=== PATIENT | male | born 1980 | race African-American/Black ===

== ENCOUNTER 2017-01-24 07:57 | Emergency (ER) | payer OTHER ==
[~2017-01-24] VITALS: Ht 198.1 cm; Wt 127.0 kg
[~2017-01-24 07:57] MED LIST: FLONASE1 SPRAYS; NKM; OMEPRAZOLE20 M2 ORAL
[2017-01-24] MEDS ORDERED: Lidocaine 2% Visc 15ml soln ORAL ONE (08:45)
[2017-01-24] MEDS ORDERED: Mylanta II UD 30ml ORAL ONE (08:45)
[2017-01-24] MEDS ORDERED: Pantoprazole Inj IVP ONE (09:00)
--- NOTE | 2017-01-24 09:04 | Emergency Room Report ---
History of Present Illness General Chief Complaint: Abdominal Pain Source: Patient Present Illness HPI This patient states that he has a history of intermittent pancreatitis. He states that during that time he has nausea, vomiting diarrhea. He hasn't had an episode in about 7 months. 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 He states that 5 days ago he developed epigastric pain, nausea, vomiting and diarrhea. He states that he is unable to even tolerate chicken broth soup. He also has a burning sensation from his stomach to his throat. He was seen at [facility] yesterday for the same symptoms. He states he was told it was not his pancreas this time. He was given medications but did not pick them up from the pharmacy. These were acid reflux and gastritis medications. He states that he continues to have epigastric pain, nausea and some vomiting. He denies fever or chills. He does not associated the onset of his symptoms with a particular meal. He has no other complaints. Allergies: Coded Allergies: No Known Allergies (Unverified , 12/18/12) Patient History Past Medical History: see triage record, HTN, asthma, other - pancreatitis Past Surgical History: other - Ortho/hip Social History: Reports: alcohol use - Occassional, Denies: drug use, smoking Reviewed Nursing Documentation: PMH: Agreed, PSxH: Agreed Nursing Documentation-PMH Past Medical History: No History, Except For Hx Hypertension: Yes Hx Asthma: Yes Review of Systems All Other Systems: negative except mentioned in HPI Physical Exam Vital Signs Date Time Temp Pulse Resp B/P Pulse Ox O2 Delivery O2 Flow Rate FiO2 01/24/17 08:10 98.1 50 14 156/93 98 Room Air Sp02 EP Interpretation: reviewed, normal General Appearance: no apparent distress, alert, GCS 15, non-toxic Head: normocephalic, atraumatic Eyes: bilateral eye PERRL, bilateral eye normal inspection ENT: hearing grossly normal, normal pharynx, no angioedema, normal voice Neck: full range of motion, supple/symm/no masses Respiratory: chest non-tender, lungs clear, normal breath sounds, speaking full sentences Cardiovascular #1: regular rate, rhythm, no edema Gastrointestinal: normal bowel sounds, soft, non-distended, no guarding, no rebound, tenderness - epigastrium Rectal: deferred Musculoskeletal: back normal, gait/station normal, normal range of motion, non- tender Neurologic: alert, oriented x3, responsive, motor strength/tone normal, sensory intact, speech normal Psychiatric: judgement/insight normal, memory normal, mood/affect normal, no suicidal/homicidal ideation Skin: normal color, no rash, warm/dry, well hydrated Medical Decision Making Diagnostic Impression: Primary Impression: Gastritis Additional Impressions: Esophagitis Hypokalemia ER Course This patient has a clinical presentation consistent with gastritis. The location of the pain and history and physical examination is consistent with this. I considered other concerning differentials, to include appendicitis, cholelithiasis, cholecystitis, pancreatitis, perforated viscus, aortic aneurysm , and pyelonephritis to name a few. However, laboratory workup in combination with medical and surgical history and physical exam makes these unlikely at this time. The patient was given protonix IV, IV Zofran and a GI cocktail orally. He had significant improvement in his symptoms. He was educated that he needs to be on an aggressive acid suppressing GI regimen. He is also found to have hypokalemia. He states that he has had a history of this in the past and has been on potassium previously but not currently. I did replace the patient's potassium here in the emergency department. The patient is also instructed to followup closely with his primary care physician and a [employer] worker. He indicated understanding. I did educate the patient on close return precautions and followup instructions. Labs Test 01/24/17 08:55 White Blood Count 7.5 K/UL (4.8-10.8) Red Blood Count 4.64 M/UL (4.70-6.10) Hemoglobin 14.5 G/DL (14.2-18.0) Hematocrit 44.9 % (42.0-52.0) Mean Corpuscular Volume 97 FL (80-99) Mean Corpuscular Hemoglobin 31.2 PG (27.0-31.0) Mean Corpuscular Hemoglobin Concent 32.2 G/DL (32.0-36.0) Red Cell Distribution Width 12.8 % (11.6-14.8) Platelet Count 211 K/UL (150-450) Mean Platelet Volume 7.5 FL (6.5-10.1) Neutrophils (%) (Auto) 76.7 % (45.0-75.0) Lymphocytes (%) (Auto) 16.3 % (20.0-45.0) Monocytes (%) (Auto) 6.0 % (1.0-10.0) Eosinophils (%) (Auto) 0.0 % (0.0-3.0) Basophils (%) (Auto) 1.0 % (0.0-2.0) Urine Color Yellow Urine Appearance Slightly cloudy Urine pH 5 (4.5-8.0) Urine Specific [place] 1.025 (1.005-1.035) Urine Protein 2+ (NEGATIVE) Urine Glucose (UA) Negative (NEGATIVE) Urine Ketones Negative (NEGATIVE) Urine Occult Blood 2+ (NEGATIVE) Urine Nitrite Negative (NEGATIVE) Urine Bilirubin Negative (NEGATIVE) Urine Urobilinogen Normal MG/DL (0.0-1.0) Urine Leukocyte Esterase Negative (NEGATIVE) Urine RBC 2-4 /HPF (0 - 0) Urine WBC 2-4 /HPF (0 - 0) Urine Squamous Epithelial Cells Few /LPF (NONE/OCC) Urine Bacteria Few /HPF (NONE) Urine Mucus Moderate /LPF (NONE/OCC) Sodium Level 143 mEQ/L (135-145) Potassium Level 2.8 mEQ/L (3.4-4.9) Chloride Level 104 mEQ/L (98-107) Carbon Dioxide Level 25 mEQ/L (20-30) Anion Gap 14 (5-15) Blood Urea Nitrogen 11 mg/dL (7-23) Creatinine 0.8 mg/dL (0.7-1.2) Estimat Glomerular Filtration Rate > 60 mL/min (>60) Glucose Level 105 mg/dL (74-106) Calcium Level 7.4 mg/dL (8.6-10.2) Total Bilirubin 0.3 mg/dL (0.0-1.2) Aspartate Amino Transf (AST/SGOT) 18 U/L (5-40) Alanine Aminotransferase (ALT/SGPT) 22 U/L (3-41) Alkaline Phosphatase 45 U/L (40-129) Troponin I < 0.30 ng/mL (<=0.30) Total Protein 5.9 g/dL (6.6-8.7) Albumin 3.5 g/dL (3.5-5.2) Globulin 2.4 g/dL Albumin/Globulin Ratio 1.4 (1.0-2.7) Lipase 50 U/L (< 60) EKG Diagnostic Results Rate: bradycardiac Rhythm: other ST Segments: no acute changes Other Impression S.bradycardia Rhythm Strip Diag. Results EP Interpretation: yes Rate: 50 Rhythm: no PVC's, no ectopy Other Impression S.bradycardia Last Vital Signs Date Time Temp Pulse Resp B/P Pulse Ox O2 Delivery O2 Flow Rate FiO2 01/24/17 08:10 98.1 50 14 156/93 98 Room Air Status: improved Disposition: HOME, SELF-CARE Condition: Improved Referrals: [facility]ERR[facility] (PCP) Patient Instructions: Gastritis, Adult, Gastroesophageal Reflux Disease, Adult ARETHA KEITA D.O. Jan 24, 2017 09:04
[2017-01-24 09:10] VITALS: BP 140/77
[2017-01-24 09:37] LABS: APPEARANCE,URINE SLIGHTLY CLOUDY; KETONES,URINE NEGATIVE (NEGATIVE); LEUKOCYTE ESTERASE ,URINE NEGATIVE (NEGATIVE); NITRITE,URINE NEGATIVE (NEGATIVE); PH,URINE 5 (4.5-8.0); PROTEIN,URINE 2+ (NEGATIVE); UROBILINOGEN,URINE NORMAL MG/DL (0.0-1.0)
[2017-01-24 09:40] LABS: TROPONIN I < 0.30 ng/mL (<=0.30)
[2017-01-24 09:43] LABS: ALANINE AMINOTRANSFERASE 22 U/L (3-41); ALBUMIN/GLOBULIN RATIO 1.4 (1.0-2.7); ANION GAP 14 (5-15); ASPARTATE AMINO TRANSFERASE 18 U/L (5-40); CALCIUM 7.4 mg/dL (8.6-10.2); CARBON DIOXIDE 25 mEQ/L (20-30); CHLORIDE 104 mEQ/L (98-107); CREATININE 0.8 mg/dL (0.7-1.2); GLOMERULAR FILTRATION RATE > 60 mL/min (>60); HEMOLYSIS 5; LIPASE 50 U/L (< 60); LYMPHOCYTES % (AUTO) 16.3 % (20.0-45.0); MEAN CORPUSCULAR HEMOGLOBIN 31.2 PG (27.0-31.0); MEAN CORPUSCULAR HGB CONC 32.2 G/DL (32.0-36.0); MEAN CORPUSCULAR VOLUME 97 FL (80-99); MEAN PLATELET VOLUME 7.5 FL (6.5-10.1); NEUTROPHILS % (AUTO) 76.7 % (45.0-75.0); PLATELET COUNT 211 K/UL (150-450); POTASSIUM 2.8 mEQ/L (3.4-4.9); RED BLOOD COUNT 4.64 M/UL (4.70-6.10); RED CELL DISTRIBUTION WIDTH 12.8 % (11.6-14.8); SODIUM 143 mEQ/L (135-145); TOTAL PROTEIN 5.9 g/dL (6.6-8.7); WHITE BLOOD COUNT 7.5 K/UL (4.8-10.8)
[2017-01-24 10:03] LABS: BACTERIA,URINE FEW /HPF; MUCUS,URINE MODERATE /LPF (NONE/OCC); SQUAMOUS EPITHELIAL CELL,UR FEW /LPF (NONE/OCC)
[2017-01-24] MEDS ORDERED: Norco 5mg/325mg tab ORAL ONE (11:00)
[2017-01-24 11:27] VITALS: BP 141/78
[2017-01-24] MEDS ORDERED: RANITIDINE HCL150 MG ORAL (12:18)
[2017-01-24] MEDS ORDERED: POTASSIUM CHLO10 ME3 ORAL (12:18)
[2017-01-24] MEDS ORDERED: MAALOX MAXIMUM355 M1 PO (12:18)
[2017-01-24] MEDS ORDERED: PROTONIX40 MG ORAL (12:18)
[2017-01-24] MEDS ORDERED: PHENERGAN25 M1 ORAL (12:18)
[2017-01-24 12:28] VITALS: BP 141/78
--- NOTE | 2017-01-25 15:41 | Cardiology Report ---
APPROVED REPORT EKG Measurement Heart [id number] Sinus bradycardia Otherwise normal ECG
== END 2017-01-24 12:31 | disposition home or self-care (01) ==
LOC: EMR 08:39
DX: K29.70 Gastritis, unspecified, without bleeding (principal); K20.9 Esophagitis, unspecified; E87.6 Hypokalemia; I10 Essential (primary) hypertension; J45.909 Unspecified asthma, uncomplicated; R00.1 Bradycardia, unspecified
CPT/HCPCS: 36415; 80053; 81003; 83690; 84484; 85025; 93005; 96360; 96361; 99284; C9113; J2405; J8499

== ENCOUNTER 2017-05-27 18:19 | Emergency (ER) | payer OTHER ==
[~2017-05-27] VITALS: Ht 198.1 cm; Wt 129.3 kg
[~2017-05-27 18:19] MED LIST changes: +MAALOX MAXIMUM355 M1 PO; +PHENERGAN25 M1 ORAL; +POTASSIUM CHLO10 ME3 ORAL; +PROTONIX40 MG ORAL; +RANITIDINE HCL150 MG ORAL
[2017-05-27] MEDS ORDERED: Famotidine 20 MG/ 2ML VIAL IVP ONE (18:45)
[2017-05-27] MEDS ORDERED: Morphine Sulfate 4mg/ml Inj IVP ONE (18:45)
--- NOTE | 2017-05-27 18:49 | Emergency Room Report ---
History of Present Illness General Chief Complaint: Abdominal Pain Source: Patient Present Illness HPI Patient presents with vomiting and epigastric pain. This for 2 days. Severe, burning, not radiating. He thinks it is pancreatitis. 07/25, constant and worsening. He was seen at [facility] before coming here. They gave him Reglan, Zofran and Tramadol. He states his pain was not controlled and therefore he decided to come here. He denies vomiting blood but vomiting bile. Had some diarrhea which he thinks is brown in color. He's had cold sweats and chills but no fever. He feels weak. Seen before here with gastritis, intractable vomiting and hypokalemia. States taking potassium. Allergies: Coded Allergies: No Known Allergies (Unverified , 12/18/12) Patient History Past Medical History: see triage record Social History: Reports: alcohol use, Denies: drug use, smoking Social History Narrative Disabled Reviewed Nursing Documentation: PMH: Agreed, PSxH: Agreed Nursing Documentation-PMH Past Medical History: No History, Except For Hx Hypertension: Yes Hx Asthma: Yes Review of Systems All Other Systems: negative except mentioned in HPI Physical Exam Vital Signs Date Time Temp Pulse Resp B/P Pulse Ox O2 Delivery O2 Flow Rate FiO2 05/27/17 18:32 97.2 55 18 117/84 98 Room Air Sp02 EP Interpretation: reviewed, normal General Appearance: well appearing, no apparent distress, GCS 15 Head: normocephalic Eyes: bilateral eye PERRL, bilateral eye normal inspection ENT: moist mucus membranes Neck: supple Respiratory: lungs clear, normal breath sounds Cardiovascular #1: regular rate, rhythm Cardiovascular #2: 2+ radial (R) Gastrointestinal: normal inspection, normal bowel sounds, non tender, no mass, non-distended Musculoskeletal: back normal, gait/station normal, normal range of motion Neurologic: alert, oriented x3 Skin: normal inspection, warm/dry Medical Decision Making Diagnostic Impression: Primary Impression: Abdominal pain Qualified Codes: R10.13 - Epigastric pain ER Course The patient's been seen here in the past for gastritis and intractable vomiting. He presents today with epigastric pain and vomiting bile. Differential includes gastritis, pancreatitis, a stretcher and is, peptic ulcer disease in gallbladder disease amongst others. The patient will undergo evaluation with labs urinalysis. He will be treated with IV hydration, Zofran and morphine with some Pepcid. Lab eval unremarkable. Improved and sleeping. Patient stable for outpatient observation and treatment. Laboratory Tests Test 05/27/17 19:07 White Blood Count 6.5 K/UL (4.8-10.8) Red Blood Count 3.99 M/UL (4.70-6.10) L Hemoglobin 13.2 G/DL (14.2-18.0) L Hematocrit 39.0 % (42.0-52.0) L Mean Corpuscular Volume 98 FL (80-99) Mean Corpuscular Hemoglobin 33.1 PG (27.0-31.0) H Mean Corpuscular Hemoglobin Concent 33.8 G/DL (32.0-36.0) Red Cell Distribution Width 11.9 % (11.6-14.8) Platelet Count 187 K/UL (150-450) Mean Platelet Volume 7.0 FL (6.5-10.1) Neutrophils (%) (Auto) 84.5 % (45.0-75.0) H Lymphocytes (%) (Auto) 12.2 % (20.0-45.0) L Monocytes (%) (Auto) 2.7 % (1.0-10.0) Eosinophils (%) (Auto) 0.0 % (0.0-3.0) Basophils (%) (Auto) 0.7 % (0.0-2.0) Prothrombin Time 10.7 SEC (9.30-11.50) Prothrombin Time INR 1.0 (0.9-1.1) PTT 25 SEC (23-33) Sodium Level 141 mEQ/L (135-145) Potassium Level 3.8 mEQ/L (3.4-4.9) Chloride Level 102 mEQ/L (98-107) Carbon Dioxide Level 26 mEQ/L (20-30) Anion Gap 13 (5-15) Blood Urea Nitrogen 12 mg/dL (7-23) Creatinine 1.2 mg/dL (0.7-1.2) Estimate Glomerular Filtration Rate > 60 mL/min (>60) Glucose Level 143 mg/dL (74-106) H Calcium Level 9.8 mg/dL (8.6-10.2) Total Bilirubin 0.5 mg/dL (0.0-1.2) Aspartate Amino Transferase (AST) 26 U/L (5-40) Alanine Aminotransferase (ALT) 25 U/L (3-41) Alkaline Phosphatase 57 U/L (40-129) Total Creatine Kinase 318 U/L (38-174) H Total Protein 7.5 g/dL (6.6-8.7) Albumin 4.6 g/dL (3.5-5.2) Globulin 2.9 g/dL Albumin/Globulin Ratio 1.5 (1.0-2.7) Lipase 26 U/L (< 60) EKG Diagnostic Results Rate: bradycardiac ST Segments: no acute changes Rhythm Strip Diag. Results EP Interpretation: yes Rhythm: no PVC's, no ectopy, other - Bradycardia Last Vital Signs Date Time Temp Pulse Resp B/P Pulse Ox O2 Delivery O2 Flow Rate FiO2 05/27/17 20:19 98.0 72 16 146/72 100 Room Air Status: improved Disposition: HOME, SELF-CARE Condition: Improved Scripts Hydrocodone Bit/Acetaminophen 5-325* (NORCO 5-325*) 1 Each Tablet 1 TAB ORAL Q6H Y for For Pain, #10 TAB 0 Refills Prov: Jensen Padron M.D. 05/27/17 Ondansetron Odt* (ZOFRAN ODT*) 4 Mg Tab.rapdis 4 MG ORAL Q8H Y for Nausea & Vomiting, #6 TAB 0 Refills Prov: Jensen Padron M.D. 05/27/17 Jensen Padron M.D. May 27, 2017 18:49
[2017-05-27 19:31] LABS: BASOPHILS % (AUTO) 0.7 % (0.0-2.0); LYMPHOCYTES % (AUTO) 12.2 % (20.0-45.0); MEAN CORPUSCULAR HEMOGLOBIN 33.1 PG (27.0-31.0); MEAN CORPUSCULAR HGB CONC 33.8 G/DL (32.0-36.0); MEAN CORPUSCULAR VOLUME 98 FL (80-99); MONOCYTES % (AUTO) 2.7 % (1.0-10.0); NEUTROPHILS % (AUTO) 84.5 % (45.0-75.0); PLATELET COUNT 187 K/UL (150-450); RED BLOOD COUNT 3.99 M/UL (4.70-6.10); RED CELL DISTRIBUTION WIDTH 11.9 % (11.6-14.8); WHITE BLOOD COUNT 6.5 K/UL (4.8-10.8)
[2017-05-27 19:40] LABS: PROTHROMBIN TIME 10.7 SEC (9.30-11.50)
[2017-05-27 19:51] LABS: ALANINE AMINOTRANSFERASE 25 U/L (3-41); ALBUMIN/GLOBULIN RATIO 1.5 (1.0-2.7); ANION GAP 13 (5-15); ASPARTATE AMINO TRANSFERASE 26 U/L (5-40); CALCIUM 9.8 mg/dL (8.6-10.2); CARBON DIOXIDE 26 mEQ/L (20-30); CHLORIDE 102 mEQ/L (98-107); CREATININE 1.2 mg/dL (0.7-1.2); GLOMERULAR FILTRATION RATE > 60 mL/min (>60); HEMOLYSIS 27; LIPASE 26 U/L (< 60); POTASSIUM 3.8 mEQ/L (3.4-4.9); SODIUM 141 mEQ/L (135-145); TOTAL PROTEIN 7.5 g/dL (6.6-8.7)
[2017-05-27 20:19] VITALS: BP 146/72
[2017-05-27] MEDS ORDERED: NORCO 5-325 TA1 EACH ORAL (21:28)
[2017-05-27] MEDS ORDERED: ZOFRAN ODT4 MG ORAL (21:28)
[2017-05-27] MEDS ORDERED: Norco 5mg/325mg tab ORAL ONE (21:30)
[2017-05-28 05:40] VITALS: BP 104/64
--- NOTE | 2017-05-28 17:50 | Cardiology Report ---
APPROVED REPORT EKG Measurement Heart [id number] Sinus bradycardia Otherwise normal ECG
== END 2017-05-27 22:00 | disposition home or self-care (01) ==
LOC: EMR 18:50
DX: R10.13 Epigastric pain (principal); R11.10 Vomiting, unspecified; I10 Essential (primary) hypertension; R00.1 Bradycardia, unspecified
CPT/HCPCS: 36415; 80053; 82550; 83690; 85025; 85610; 85730; 93005; 96374; 96375; 99284; J2270; J2405; S0028

== ENCOUNTER 2017-05-31 07:57 | Emergency (ER) | payer OTHER ==
[~2017-05-31] VITALS: Ht 195.6 cm; Wt 129.3 kg
[~2017-05-31 07:57] MED LIST changes: +NORCO 5-325 TA1 EACH ORAL; +ZOFRAN ODT4 MG ORAL
[2017-05-31 08:20] VITALS: BP 173/106
[2017-05-31] MEDS ORDERED: Famotidine 20 MG/ 2ML VIAL IVP ONE (08:30)
--- NOTE | 2017-05-31 08:32 | Emergency Room Report ---
History of Present Illness General Chief Complaint: Nausea Source: Patient Present Illness HPI 37-year-old male no significant past medical history chronic marijuana user presenting with nausea vomiting and epigastric abdominal pain. Patient states that on Monday his symptoms started he had about 5 episodes of nonbilious nonbloody vomiting. Patient went to the emergency room and symptoms improved with morphine and Zofran. Patient states that the nausea and vomiting came first the followed by the burning epigastric pain. Patient states that nausea vomiting still continued about 3-4 episodes a day now with mild streaks of blood. States that she is passing gas and stool today he had a normal bowel movement denies it being bloody or black. Patient denies having any abdominal surgeries and no endoscopies in the past. Patient denies any chronic alcohol use. Allergies: Coded Allergies: No Known Allergies (Unverified , 12/18/12) Patient History Past Medical History: none Past Surgical History: none Pertinent Family History: none Social History: Reports: drug use, smoking Nursing Documentation-[facility] Past Medical History: No History, Except For Hx Hypertension: Yes Hx Asthma: Yes Review of Systems Gastrointestinal: Reports: abdominal pain, nausea, vomiting Physical Exam Vital Signs Date Time Temp Pulse Resp B/P Pulse Ox O2 Delivery O2 Flow Rate FiO2 05/31/17 08:02 97.7 53 19 174/97 100 Room Air General Appearance: normal inspection, well appearing, no apparent distress, alert, GCS 15, non-toxic Head: normocephalic, atraumatic Eyes: bilateral eye EOMI, bilateral eye PERRL, bilateral eye normal inspection ENT: normal ENT inspection, normal pharynx, normal voice, moist mucus membranes Neck: normal inspection, full range of motion, supple, no bony tend Respiratory: normal inspection, lungs clear, normal breath sounds, no respiratory distress, no retraction, no wheezing, speaking full sentences, chest symmetrical Cardiovascular #1: normal inspection, regular rate, rhythm, no edema, normal capillary refill Gastrointestinal: normal inspection, soft, non-distended, no guarding, other - mild epigastric tenderness no guarding Genitourinary: no CVA tenderness Musculoskeletal: normal inspection, back normal, normal range of motion, non- tender Neurologic: normal inspection, alert, oriented x3, responsive, motor strength/ tone normal, sensory intact, normal gait, speech normal Medical Decision Making Diagnostic Impression: Primary Impression: Nausea and vomiting in adult patient ER Course 37 yo M hx with n/v epigastric pain DDX: vomiting syndrome related to marijuana use gastritis GB pathology Plan: labs, zofran/pepcid/morphine ER course: patient given pepcid, zofran, reglan, morphine labs: no leukocytosis, normal LFTs CXR: no free air US performd - no stones in gallbladder patient had few episodes of vomiting in ED however improved nursing staff noted him to induce his own vomiting patient appeared very well repeat abd exam soft nt Disposition: pt dced to home. informed to follow up with pmd within 5 days. strict return prec discussed with pt. alsot old to stop using marijuana as could cause the vomiting. pt verbalized understanding Last Vital Signs Date Time Temp Pulse Resp B/P Pulse Ox O2 Delivery O2 Flow Rate FiO2 05/31/17 08:02 97.7 53 19 174/97 100 Room Air Cheryl Dial M.D. May 31, 2017 08:31
[2017-05-31] MEDS ORDERED: Morphine Sulfate 4mg/ml Inj ONE (08:35)
[2017-05-31 08:41] LABS: BASOPHILS % (AUTO) 1.4 % (0.0-2.0); EOSINOPHILS % (AUTO) 0.5 % (0.0-3.0); LYMPHOCYTES % (AUTO) 27.8 % (20.0-45.0); MEAN CORPUSCULAR HEMOGLOBIN 32.7 PG (27.0-31.0); MEAN CORPUSCULAR HGB CONC 33.2 G/DL (32.0-36.0); MEAN CORPUSCULAR VOLUME 99 FL (80-99); MEAN PLATELET VOLUME 6.8 FL (6.5-10.1); NEUTROPHILS % (AUTO) 65.4 % (45.0-75.0); PLATELET COUNT 224 K/UL (150-450); RED BLOOD COUNT 4.22 M/UL (4.70-6.10); RED CELL DISTRIBUTION WIDTH 11.5 % (11.6-14.8); WHITE BLOOD COUNT 5.5 K/UL (4.8-10.8)
[2017-05-31 08:49] LABS: ALANINE AMINOTRANSFERASE 25 U/L (3-41); ALBUMIN/GLOBULIN RATIO 1.5 (1.0-2.7); ANION GAP 12 (5-15); ASPARTATE AMINO TRANSFERASE 29 U/L (5-40); CALCIUM 11.3 mg/dL (8.6-10.2); CARBON DIOXIDE 30 mEQ/L (20-30); CHLORIDE 98 mEQ/L (98-107); CREATININE 1.2 mg/dL (0.7-1.2); GLOMERULAR FILTRATION RATE > 60 mL/min (>60); HEMOLYSIS 12; LIPASE 54 U/L (< 60); POTASSIUM 3.7 mEQ/L (3.4-4.9); SODIUM 140 mEQ/L (135-145); TOTAL PROTEIN 7.2 g/dL (6.6-8.7)
[2017-05-31] MEDS ORDERED: Morphine Sulfate 4mg/ml Inj IVP ONE ×2 (09:00→09:45)
[2017-05-31 09:16] LABS: APPEARANCE,URINE CLEAR; KETONES,URINE 1+ (NEGATIVE); LEUKOCYTE ESTERASE ,URINE 1+ (NEGATIVE); NITRITE,URINE NEGATIVE (NEGATIVE); PH,URINE 6 (4.5-8.0); PROTEIN,URINE NEGATIVE (NEGATIVE); UROBILINOGEN,URINE NORMAL MG/DL (0.0-1.0)
[2017-05-31 09:32] LABS: BACTERIA,URINE FEW /HPF; MUCUS,URINE FEW /LPF (NONE/OCC); SQUAMOUS EPITHELIAL CELL,UR OCCASIONAL /LPF (NONE/OCC)
[2017-05-31] MEDS ORDERED: Metoclopramide 10mg/2ml Inj IVP ONE (09:45)
[2017-05-31 11:53] VITALS: BP 157/88
--- NOTE | 2017-05-31 12:14 | Diagnostic Imaging Report ---
Indication: Chest pain Technique: One view of the chest Comparison: 10/03/2009 Findings: Lung and pleural space are clear. Heart size is normal. There is no significant interim change Impression: No acute process
[2017-05-31] MEDS ORDERED: Mylanta II UD 30ml ORAL ONE (12:15)
[2017-05-31] MEDS ORDERED: Dicyclomine HCl 10mg/5ml oral soln ORAL ONE (12:15)
[2017-05-31] MEDS ORDERED: Lidocaine 2% Visc 15ml soln ORAL ONE (12:15)
[2017-05-31 12:40] VITALS: BP 157/88
--- NOTE | 2017-05-31 14:19 | Diagnostic Imaging Report ---
Indication: Epigastric pain, vomiting, nausea Technique: Sparks-scale and duplex images of the upper abdomen were obtained Comparison: Reference made to abdomen pelvis CT 06/16/2016 Findings: Gallbladder is unremarkable, without stones, wall thickening, nor pericholecystic fluid. Sonographic Srivastava's sign is negative. Common bile duct measures 5 mm in diameter. No intrahepatic biliary ductal dilatation. Liver demonstrates normal echogenicity, no focal abnormality. Portal vein and hepatic veins are patent. Pancreas demonstrates questionable echogenic foci, could represent small calcifications. Spleen is unremarkable. Left kidney measures 12 cm in length. Right kidney measures full 0.3 cm length. Both kidneys demonstrate normal echogenicity. There is no hydronephrosis. There are bilateral renal cysts . Non-aneurysmal abdominal aorta . Impression: Echogenic foci in the pancreas, could represent small calcifications, but are more likely artifactual, given negative finding on recent CT Negative for gallstones or dilated ducts Bilateral renal cysts incidentally noted
== END 2017-05-31 12:46 | disposition home or self-care (01) ==
LOC: EMR 08:56
DX: R11.2 Nausea with vomiting, unspecified (principal); I10 Essential (primary) hypertension; F17.200 Nicotine dependence, unspecified, uncomplicated
CPT/HCPCS: 36415; 71010; 76700; 80053; 81003; 83690; 85025; 96360; 96375; 99284; J2270; J2405; J2765; S0028

== ENCOUNTER 2017-07-24 02:55 | Emergency (ER) | payer OTHER ==
[~2017-07-24] VITALS: Ht 198.1 cm; Wt 127.0 kg
[2017-07-24 03:20] VITALS: BP 176/103
--- NOTE | 2017-07-24 03:26 | Emergency Room Report ---
History of Present Illness General Chief Complaint: Abdominal Pain Source: Patient Present Illness HPI 37-year-old male, marijuana user, presenting with abdominal pain nausea vomiting since 10:30 PM last night. More than 6 episodes nonbilious nonbloody vomiting. Associated with burning epigastric pain. Patient states that this has happened multiple times in the past. Upon chart review, patient has been here multiple times as well for same thing. Patient states that Zofran usually helps. No endoscopies and colonoscopies. No black or bloody stools Allergies: Coded Allergies: No Known Allergies (Unverified , 12/18/12) Patient History Past Medical History: see triage record Past Surgical History: none Pertinent Family History: none Reviewed Nursing Documentation: PMH: Agreed, PSxH: Agreed Nursing Documentation-PMH Hx Hypertension: Yes Hx Asthma: Yes Review of Systems All Other Systems: negative except mentioned in HPI Physical Exam Vital Signs Date Time Temp Pulse Resp B/P (MAP) Pulse Ox O2 Delivery O2 Flow Rate FiO2 07/24/17 03:11 97.5 71 18 176/103 98 Room Air Sp02 EP Interpretation: reviewed, normal General Appearance: alert, GCS 15, non-toxic, other - Young male, appears to be in distress Head: normocephalic, atraumatic Eyes: bilateral eye normal inspection, bilateral eye PERRL, bilateral eye EOMI ENT: normal ENT inspection, normal pharynx, normal voice, moist mucus membranes Neck: normal inspection, full range of motion, supple Respiratory: normal inspection, lungs clear, normal breath sounds, no respiratory distress, no retraction, no wheezing, speaking full sentences, chest symmetrical Cardiovascular #1: normal inspection, regular rate, rhythm, no edema, normal capillary refill Cardiovascular #2: 2+ radial (R), 2+ radial (L) Gastrointestinal: soft, non-distended, no guarding, other - Mild epigastric tenderness, no guarding no rebound, nontender all other quadrant Genitourinary: no CVA tenderness Musculoskeletal: normal inspection, back normal, normal range of motion, non- tender Neurologic: normal inspection, alert, oriented x3, responsive, motor strength/ tone normal, sensory intact, normal gait, speech normal Psychiatric: normal inspection, judgement/insight normal, memory normal Skin: normal inspection, normal color, no rash, warm/dry, well hydrated, normal turgor Medical Decision Making Diagnostic Impression: Primary Impression: Nausea and vomiting in adult patient ER Course 37-year-old male with abdominal pain Differential Diagnosis: Gastritis, gastroenteritis, cholecystitis, appendicitis, diverticulitis, UTI/ pyelo At this time abdomen is soft nontender, not likely to have acute intra- abdominal surgical pathology, will hold CT for now. Patient has had a gallbladder sonogram in the past, which has been negative. Patient has had similar episodes such as this, likely secondary to marijuana use , cyclic vomiting Plan: Basic labs, ua, ekg Pepcid, maalox, pain control, IVF ER course: Patient has remained stable during ED stay. Pain improved. Repeat abdominal exam is nontender. required zofran x 2 and reglan ambulatory in ED wants to leave will DC Disposition: Patient is to be discharged to home. Patient is instructed to follow up with their primary care doctor within 5 days. Patient is instructed to follow up with gastroenterology within one week Strict return precautions discussed with patient such as fever, chills, worsening/severe abdominal pain, nausea, vomiting, black or bloody stools, which may indicate severe illness. Please note that this Emergency Department Report was dictated using [employer] instructor technology software, occasionally this can lead to erroneous entry secondary to interpretation by the dictation equipment Laboratory Tests Test 07/24/17 03:30 White Blood Count 6.4 K/UL (4.8-10.8) Red Blood Count 3.92 M/UL (4.70-6.10) L Hemoglobin 13.3 G/DL (14.2-18.0) L Hematocrit 38.2 % (42.0-52.0) L Mean Corpuscular Volume 98 FL (80-99) Mean Corpuscular Hemoglobin 34.0 PG (27.0-31.0) H Mean Corpuscular Hemoglobin Concent 34.9 G/DL (32.0-36.0) Red Cell Distribution Width 11.6 % (11.6-14.8) Platelet Count 196 K/UL (150-450) Mean Platelet Volume 7.4 FL (6.5-10.1) Neutrophils (%) (Auto) 74.6 % (45.0-75.0) Lymphocytes (%) (Auto) 20.0 % (20.0-45.0) Monocytes (%) (Auto) 4.5 % (1.0-10.0) Eosinophils (%) (Auto) 0.1 % (0.0-3.0) Basophils (%) (Auto) 0.8 % (0.0-2.0) Sodium Level 138 MMOL/L (136-145) Potassium Level 3.2 MMOL/L (3.5-5.1) L Chloride Level 101 MMOL/L (98-107) Carbon Dioxide Level 28 MMOL/L (21-32) Anion Gap 9 (5-15) Blood Urea Nitrogen 15 mg/dL (7-18) Creatinine 1.3 MG/DL (0.55-1.00) H Estimate Glomerular Filtration Rate > 60 mL/min (>60) Glucose Level 170 MG/DL (74-106) H Calcium Level 9.0 MG/DL (8.5-10.1) Total Bilirubin 0.5 MG/DL (0.2-1.0) Aspartate Amino Transferase (AST) 23 U/L (15-37) Alanine Aminotransferase (ALT) 32 U/L (12-78) Alkaline Phosphatase 57 U/L (46-116) Total Protein 7.6 G/DL (6.4-8.2) Albumin 3.9 G/DL (3.4-5.0) Globulin 3.7 g/dL Albumin/Globulin Ratio 1.0 (1.0-2.7) Lipase 142 U/L (73-393) Last Vital Signs Date Time Temp Pulse Resp B/P (MAP) Pulse Ox O2 Delivery O2 Flow Rate FiO2 07/24/17 03:11 97.5 71 18 176/103 98 Room Air Disposition: HOME, SELF-CARE Condition: Improved Cheryl Dial M.D. Jul 24, 2017 03:25
[2017-07-24 04:00] LABS: BASOPHILS % (AUTO) 0.8 % (0.0-2.0); EOSINOPHILS % (AUTO) 0.1 % (0.0-3.0); MEAN CORPUSCULAR HGB CONC 34.9 G/DL (32.0-36.0); MEAN CORPUSCULAR VOLUME 98 FL (80-99); MEAN PLATELET VOLUME 7.4 FL (6.5-10.1); MONOCYTES % (AUTO) 4.5 % (1.0-10.0); NEUTROPHILS % (AUTO) 74.6 % (45.0-75.0); PLATELET COUNT 196 K/UL (150-450); RED BLOOD COUNT 3.92 M/UL (4.70-6.10); RED CELL DISTRIBUTION WIDTH 11.6 % (11.6-14.8); WHITE BLOOD COUNT 6.4 K/UL (4.8-10.8)
[2017-07-24 04:17] LABS: ALANINE AMINOTRANSFERASE 32 U/L (12-78); ANION GAP 9 (5-15); ASPARTATE AMINO TRANSFERASE 23 U/L (15-37); CARBON DIOXIDE 28 MMOL/L (21-32); CHLORIDE 101 MMOL/L (98-107); CREATININE 1.3 MG/DL (0.55-1.00); GLOMERULAR FILTRATION RATE > 60 mL/min (>60); LIPASE 142 U/L (73-393); POTASSIUM 3.2 MMOL/L (3.5-5.1); SODIUM 138 MMOL/L (136-145); TOTAL PROTEIN 7.6 G/DL (6.4-8.2)
[2017-07-24] MEDS ORDERED: Dicyclomine HCl 10mg/5ml oral soln ORAL ONE (05:30)
[2017-07-24] MEDS ORDERED: Metoclopramide 10mg/2ml Inj IVP ONE (05:30)
[2017-07-24] MEDS ORDERED: Lidocaine 2% Visc 15ml soln ORAL ONE (05:30)
[2017-07-24] MEDS ORDERED: Mylanta II UD 30ml ORAL ONE (05:30)
[2017-07-24 05:45] VITALS: BP 161/89
[2017-07-24 05:50] VITALS: BP 161/89
== END 2017-07-24 05:50 | disposition home or self-care (01) ==
LOC: EMR 03:43
DX: R11.2 Nausea with vomiting, unspecified (principal); R10.9 Unspecified abdominal pain; I10 Essential (primary) hypertension; J45.909 Unspecified asthma, uncomplicated
CPT/HCPCS: 36415; 80053; 83690; 85025; 96361; 96374; 96375; 96376; 99284; J2405; J2765

== ENCOUNTER 2017-11-11 11:18 | Emergency (ER) | payer OTHER ==
[~2017-11-11] VITALS: Ht 198.1 cm; Wt 131.5 kg
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
[2017-11-11] MEDS ORDERED: Lidocaine 1% MPF 10mg/ml 5ml INJ ONE (12:00)
[2017-11-11] MEDS ORDERED: Bactrim-DS 1 tab ORAL ONE (12:00)
[2017-11-11] MEDS ORDERED: BACTRIM DS TAB1 EAC1 ORAL (12:33)
[2017-11-11] MEDS ORDERED: IBUPROFEN600 MG ORAL (12:33)
[2017-11-11] MEDS ORDERED: KEFLEX500 MG ORAL (12:33)
[2017-11-11 12:45] VITALS: BP 122/88
== END 2017-11-11 12:47 | disposition home or self-care (01) ==
LOC: EMR 11:32
DX: R21 Rash and other nonspecific skin eruption (principal); R23.4 Changes in skin texture; I10 Essential (primary) hypertension; J45.909 Unspecified asthma, uncomplicated
CPT/HCPCS: 96372; 99283; J0696

== ENCOUNTER 2018-02-11 00:18 | Emergency (ER) | payer OTHER ==
[~2018-02-11] VITALS: Ht 198.1 cm; Wt 131.5 kg
[~2018-02-11 00:18] MED LIST changes: +BACTRIM DS TAB1 EAC1 ORAL; +IBUPROFEN600 MG ORAL; +KEFLEX500 MG ORAL
[2018-02-11 00:30] VITALS: BP 150/94
[2018-02-11] MEDS ORDERED: Haloperidol Lactate 5 MG in D5W 55 ML IVPB ONE (00:45)
[2018-02-11] MEDS ORDERED: Promethazine HCl 25 MG in NS 55 ML IVPB ONE (00:45)
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
[2018-02-11 01:37] LABS: APPEARANCE,URINE CLOUDY; BILIRUBIN, URINE NEGATIVE (NEGATIVE); COLOR,URINE PALE YELLOW; GLUCOSE, URINE (UA) NEGATIVE (NEGATIVE); KETONES,URINE 1+ (NEGATIVE); LEUKOCYTE ESTERASE ,URINE NEGATIVE (NEGATIVE); NITRITE,URINE NEGATIVE (NEGATIVE); PH,URINE 8 (4.5-8.0); PROTEIN,URINE NEGATIVE (NEGATIVE); UROBILINOGEN,URINE NORMAL MG/DL (0.0-1.0)
[2018-02-11 01:44] LABS: BASOPHILS % (AUTO) 0.7 % (0.0-2.0); HEMATOCRIT 40.2 % (42.0-52.0); HEMOGLOBIN 14.4 G/DL (14.2-18.0); LYMPHOCYTES % (AUTO) 14.7 % (20.0-45.0); MEAN CORPUSCULAR VOLUME 93 FL (80-99); MONOCYTES % (AUTO) 2.8 % (1.0-10.0); NEUTROPHILS % (AUTO) 81.8 % (45.0-75.0); PLATELET COUNT 200 K/UL (150-450); RED BLOOD COUNT 4.31 M/UL (4.70-6.10); RED CELL DISTRIBUTION WIDTH 12.7 % (11.6-14.8); WHITE BLOOD COUNT 6.6 K/UL (4.8-10.8)
[2018-02-11 01:50] LABS: ANION GAP 8 mmol/L (5-15); BLOOD UREA NITROGEN 14 mg/dL (7-18); CALCIUM 9.4 MG/DL (8.5-10.1); CARBON DIOXIDE 29 MMOL/L (21-32); CHLORIDE 103 MMOL/L (98-107); CREATININE 1.3 MG/DL (0.55-1.30); POTASSIUM 3.6 MMOL/L (3.5-5.1); SODIUM 140 MMOL/L (136-145)
[2018-02-11 01:59] LABS: ALANINE AMINOTRANSFERASE 34 U/L (12-78); ALBUMIN 4.3 G/DL (3.4-5.0); ALKALINE PHOSPHATASE 81 U/L (46-116); ASPARTATE AMINO TRANSFERASE 24 U/L (15-37); BILIRUBIN,TOTAL 0.5 MG/DL (0.2-1.0)
[2018-02-11] MEDS ORDERED: PHENERGAN25 M1 ORAL (02:19)
[2018-02-11 03:00] VITALS: BP 132/74
[2018-02-11 03:15] VITALS: BP 132/74
== END 2018-02-11 03:15 | disposition home or self-care (01) ==
LOC: EMR 01:51
DX: R10.9 Unspecified abdominal pain (principal); G43.A0 Cyclical vomiting, in migraine, not intractable; I10 Essential (primary) hypertension; J45.909 Unspecified asthma, uncomplicated; Z85.09 Personal history of malignant neoplasm of other digestive organs; F14.10 Cocaine abuse, uncomplicated; F12.10 Cannabis abuse, uncomplicated
CPT/HCPCS: 36415; 80053; 80307; 81003; 83690; 85025; 96374; 96375; 99283; J0780; J1630; J2550

== ENCOUNTER 2018-04-04 19:04 | Emergency (ER) | payer OTHER ==
[~2018-04-04] VITALS: Ht 198.1 cm; Wt 127.0 kg
[2018-04-04] MEDS ORDERED: BACTRIM DS TAB1 EAC1 ORAL (20:23)
[2018-04-04] MEDS ORDERED: CEPHALEXIN500 MG ORAL (20:23)
[2018-04-04] MEDS ORDERED: TRAMADOL HCL50 MG ORAL (20:23)
[2018-04-04 20:25] VITALS: BP 126/72
--- NOTE | 2018-04-04 22:25 | Emergency Room Report ---
History of Present Illness General Chief Complaint: Pain Source: Patient Present Illness HPI 37-year-old male presents ED complaining of right knee pain. Has has pain on and off for the last several years. Notes swelling to the right knee. States he has arthritis in his right knee. Denies any recent injury. Pain is throbbing, 7 out of 10, nonradiating. Also has a wound to his right lower extremity. Has been there for several months. Started out as a "staph infection" but is not resolving. Denies any pain. Denies any fevers or chills. Denies any discharge. No other aggravating relieving factors. Denies any other associated symptoms Allergies: Coded Allergies: No Known Allergies (Unverified , 04/04/18) Patient History Past Medical History: other - pancreatitis Past Surgical History: none Pertinent Family History: none Social History: Denies: smoking, alcohol use, drug use Immunizations: UTD Reviewed Nursing Documentation: PMH: Agreed; PSxH: Agreed Nursing Documentation-PMH Past Medical History: No Stated History Hx Cardiac Problems: No - bilateral hip fracture Hx Hypertension: Yes Hx Pacemaker: No Hx Asthma: Yes Hx COPD: No Hx Diabetes: No Hx Cancer: No Hx Gastrointestinal Problems: Yes - Pancreatitis Hx Dialysis: No Hx Neurological Problems: No Hx Cerebrovascular Accident: No Hx Seizures: No Review of Systems All Other Systems: negative except mentioned in HPI Physical Exam Vital Signs Date Time Temp Pulse Resp B/P (MAP) Pulse Ox O2 Delivery O2 Flow Rate FiO2 04/04/18 19:19 98.2 75 18 126/72 99 Room Air 98.2 Sp02 EP Interpretation: reviewed, normal General Appearance: no apparent distress, alert, GCS 15, non-toxic Head: normocephalic Eyes: bilateral eye normal inspection, bilateral eye PERRL ENT: normal ENT inspection Neck: normal inspection Respiratory: normal inspection Cardiovascular #1: normal inspection Gastrointestinal: normal inspection Rectal: deferred Genitourinary: no CVA tenderness Musculoskeletal: swelling - R knee Neurologic: alert, oriented x3, responsive, motor strength/tone normal, sensory intact, speech normal Psychiatric: normal inspection Skin: other - 2x2cm chronic ulcer to RLE. surrounding induration, no erythema. no discharge Lymphatic: normal inspection Medical Decision Making Diagnostic Impression: Primary Impression: Knee pain Qualified Codes: M25.561 - Pain in right knee; G89.29 - Other chronic pain Additional Impression: Ulcer of lower extremity Qualified Codes: L97.919 - Non-pressure chronic ulcer of unspecified part of right lower leg with unspecified severity ER Course Hospital Course 37-year-old M presents to ED complaining of R knee pain, ulcer to RLE Differential diagnoses include: Fracture, dislocation, sprain, contusion Clinical course Patient placed on stretcher. After initial history and physical, I ordered Xrays R knee Xrays prelim read shows no acute fracture/dislocation. significant DJD. discussed findigns with patient. We will start patient on antibiotics for the ulcer to his right lower extremity. It does appear chronic however. We will provide surgical referral for wound care versus debridement Diagnosis - knee pain, ulcer Stable and discharged to home with prescription for Tramadol, Keflex, Bactrim. apply ice, keep elevated. weight bear as tolerated. Followup with surgery. Return to ED if symptoms recur or worsen Other X-Ray Diagnostic Results Other X-Ray Diagnostic Results : X-Ray ordered: R knee # of Views/Limited Vs Complete: 3 View Indication: Pain EP Interpretation: Yes Interpretation: no dislocation, no fractures, other - significant DJD Impression: Other - DJD Electronically Signed by: Electronically signed by Tab Chand MD Last Vital Signs Date Time Temp Pulse Resp B/P (MAP) Pulse Ox O2 Delivery O2 Flow Rate FiO2 04/04/18 20:25 98.2 18 126/72 99 Room Air 98.2 04/04/18 19:19 75 Status: improved Disposition: HOME, SELF-CARE Condition: Stable Scripts Trimethoprim/Sulfamethoxazole 160/800* (BACTRIM DS TABLET*) 1 Each Tablet 1 TAB ORAL Q12H, #14 TAB 0 Refills Prov: Tab Chand MD 04/04/18 Cephalexin* (KEFLEX*) 500 Mg Capsule 500 MG ORAL EVERY 6 HOURS, #28 CAP Prov: Tab Chand MD 04/04/18 Tramadol Hcl* (ULTRAM*) 50 Mg Tablet 50 MG ORAL Q6H PRN for For Pain, #30 TAB 0 Refills Prov: Tab Chand MD 04/04/18 Referrals: Urban Rosa Patient Instructions: Cellulitis, [id number] Tab Chand MD Apr 04, 2018 22:25
--- NOTE | 2018-04-05 10:01 | Diagnostic Imaging Report ---
Indication: Knee pain Technique: 3 views of the ] knee Comparison: None Findings: There is probably a small suprapatellar effusion. There is degenerative narrowing of the medial joint compartment and medial osteophytes. There is also minimal patellofemoral degeneration. No acute fractures. No dislocations Impression: No acute process
== END 2018-04-04 20:25 | disposition home or self-care (01) ==
LOC: EMR 19:49
DX: M25.561 Pain in right knee (principal); L97.819 Non-pressure chronic ulcer of other part of right lower leg with unspecified severity; I10 Essential (primary) hypertension; J45.909 Unspecified asthma, uncomplicated
CPT/HCPCS: 99284

== ENCOUNTER 2018-07-01 12:12 | Emergency (ER) | payer OTHER ==
[~2018-07-01] VITALS: Ht 198.1 cm; Wt 136.1 kg
[~2018-07-01 12:12] MED LIST changes: +CEPHALEXIN500 MG ORAL; +TRAMADOL HCL50 MG ORAL
[2018-07-01 12:23] VITALS: BP 119/63
--- NOTE | 2018-07-01 12:23 | Emergency Room Report ---
History of Present Illness General Chief Complaint: Abdominal Pain Source: Patient Present Illness HPI Patient presents with complaints of epigastric pain radiation to the mid esophageal region complaints of several episodes of vomiting he also did see a tinge of blood Denies any lower abdominal pain denies any fevers or chills Denies any chest pain or shortness of breath Patient had a lesion on his right back area Which mom describes as likely an insect bite He reports that that has proved significantly Denies any other rash denies any recent travel or trauma Allergies: Coded Allergies: No Known Allergies (Unverified , 04/04/18) Patient History Past Medical History: see triage record Pertinent Family History: none Reviewed Nursing Documentation: PMH: Agreed; PSxH: Agreed Nursing Documentation-PMH Past Medical History: No History, Except For Hx Cardiac Problems: No - bilateral hip fracture Hx Hypertension: Yes Hx Pacemaker: No Hx Asthma: Yes Hx COPD: No Hx Diabetes: No Hx Cancer: No Hx Gastrointestinal Problems: Yes - Pancreatitis Hx Dialysis: No Hx Neurological Problems: No Hx Cerebrovascular Accident: No Hx Seizures: No Review of Systems All Other Systems: negative except mentioned in HPI Physical Exam Vital Signs Date Time Temp Pulse Resp B/P (MAP) Pulse Ox O2 Delivery O2 Flow Rate FiO2 07/01/18 12:08 98.0 62 16 137/94 98 Room Air 98.1 Sp02 EP Interpretation: reviewed, normal General Appearance: mild distress - In acute pain Head: normocephalic, atraumatic Eyes: bilateral eye PERRL, bilateral eye EOMI ENT: hearing grossly normal, normal pharynx, TMs + canals normal, uvula midline Neck: full range of motion, supple, no meningismus, no bony tend Respiratory: lungs clear, normal breath sounds, no rhonchi, no respiratory distress, no retraction, no accessory muscle use Cardiovascular #1: normal peripheral pulses, regular rate, rhythm, no edema, no gallop, no JVD, no murmur Gastrointestinal: normal bowel sounds, non tender - However subjectively points to the epigastric area, soft, no mass, no organomegaly, non-distended, no guarding, no hernia, no pulsatile mass, no rebound Genitourinary: no CVA tenderness Musculoskeletal: normal inspection Neurologic: oriented x3, responsive, project management it specialist III-XII nml as tested, motor strength/ tone normal, sensory intact Psychiatric: mood/affect normal Skin: normal color, no rash, warm/dry, palpation normal Lymphatic: normal inspection, no adenopathy Medical Decision Making Diagnostic Impression: Primary Impression: Abdominal pain Additional Impression: Cocaine abuse ER Course With the history exam and presentation, multiple differentials considered, including but not limited to appendicitis, gastritis, cholecystitis, diverticulitis Patient's blood work is normal urine drug screen does reveal cocaine in the system again Patient has done significantly better throughout his stay Repeat abdominal exam is soft and patient stable for close outpatient follow-up Labs Test 07/01/18 12:35 07/01/18 13:35 White Blood Count 4.9 K/UL (4.8-10.8) Red Blood Count 4.24 M/UL (4.70-6.10) Hemoglobin 13.3 G/DL (14.2-18.0) Hematocrit 39.4 % (42.0-52.0) Mean Corpuscular Volume 93 FL (80-99) Mean Corpuscular Hemoglobin 31.3 PG (27.0-31.0) Mean Corpuscular Hemoglobin Concent 33.7 G/DL (32.0-36.0) Red Cell Distribution Width 11.5 % (11.6-14.8) Platelet Count 244 K/UL (150-450) Mean Platelet Volume 7.1 FL (6.5-10.1) Neutrophils (%) (Auto) 66.4 % (45.0-75.0) Lymphocytes (%) (Auto) 25.3 % (20.0-45.0) Monocytes (%) (Auto) 6.0 % (1.0-10.0) Eosinophils (%) (Auto) 0.9 % (0.0-3.0) Basophils (%) (Auto) 1.4 % (0.0-2.0) Sodium Level 141 MMOL/L (136-145) Potassium Level 3.8 MMOL/L (3.5-5.1) Chloride Level 105 MMOL/L (98-107) Carbon Dioxide Level 24 MMOL/L (21-32) Anion Gap 12 mmol/L (5-15) Blood Urea Nitrogen 16 mg/dL (7-18) Creatinine 1.3 MG/DL (0.55-1.30) Estimat Glomerular Filtration Rate > 60 mL/min (>60) Glucose Level 146 MG/DL (74-106) Calcium Level 10.4 MG/DL (8.5-10.1) Total Bilirubin 0.6 MG/DL (0.2-1.0) Aspartate Amino Transf (AST/SGOT) 28 U/L (15-37) Alanine Aminotransferase (ALT/SGPT) 43 U/L (12-78) Alkaline Phosphatase 89 U/L (46-116) Total Protein 8.4 G/DL (6.4-8.2) Albumin 4.2 G/DL (3.4-5.0) Globulin 4.2 g/dL Albumin/Globulin Ratio 1.0 (1.0-2.7) Lipase 246 U/L (73-393) Serum Alcohol < 3 mg/dL Urine Opiates Screen Negative (NEGATIVE) Urine Barbiturates Screen Negative (NEGATIVE) Phencyclidine (PCP) Screen Negative (NEGATIVE) Urine Amphetamines Screen Negative (NEGATIVE) Urine Benzodiazepines Screen Negative (NEGATIVE) Urine Cocaine Screen Positive (NEGATIVE) Urine Marijuana (THC) Screen Positive (NEGATIVE) Last Vital Signs Date Time Temp Pulse Resp B/P (MAP) Pulse Ox O2 Delivery O2 Flow Rate FiO2 07/01/18 12:08 98.0 62 16 137/94 98 Room Air 98.1 Status: improved Disposition: HOME, SELF-CARE Condition: Improved Scripts Hydrocodone Bit/Acetaminophen 5-325* (NORCO 5-325*) 1 Each Tablet 1 TAB ORAL Q6H PRN for For Pain, #10 TAB 0 Refills Prov: Andrew Alfonso DO 07/01/18 Famotidine (PEPCID AC) 20 Mg Tablet 20 MG PO DAILY for 7 Days, TAB Prov: Andrew Alfonso DO 07/01/18 Additional Instructions: Patient is provided with the discharge instructions notified to follow up with primary doctor in the next 2-3 days otherwise return to the er with any worsening symptoms. Please note that this report is being documented using [employer] technology. This can lead to erroneous entry secondary to incorrect interpretation by the dictating instrument. Andrew Alfonso DO Jul 01, 2018 12:23
[2018-07-01] MEDS ORDERED: Morphine Sulfate 4mg/ml Inj (IV USE ONLY) IVP ONE (12:30)
[2018-07-01 13:10] LABS: BASOPHILS % (AUTO) 1.4 % (0.0-2.0); EOSINOPHILS % (AUTO) 0.9 % (0.0-3.0); HEMATOCRIT 39.4 % (42.0-52.0); HEMOGLOBIN 13.3 G/DL (14.2-18.0); LYMPHOCYTES % (AUTO) 25.3 % (20.0-45.0); MEAN CORPUSCULAR VOLUME 93 FL (80-99); NEUTROPHILS % (AUTO) 66.4 % (45.0-75.0); PLATELET COUNT 244 K/UL (150-450); RED BLOOD COUNT 4.24 M/UL (4.70-6.10); RED CELL DISTRIBUTION WIDTH 11.5 % (11.6-14.8); WHITE BLOOD COUNT 4.9 K/UL (4.8-10.8)
[2018-07-01 13:19] LABS: ANION GAP 12 mmol/L (5-15); BLOOD UREA NITROGEN 16 mg/dL (7-18); CALCIUM 10.4 MG/DL (8.5-10.1); CARBON DIOXIDE 24 MMOL/L (21-32); CHLORIDE 105 MMOL/L (98-107); CREATININE 1.3 MG/DL (0.55-1.30); POTASSIUM 3.8 MMOL/L (3.5-5.1); SODIUM 141 MMOL/L (136-145)
[2018-07-01 13:24] LABS: ALANINE AMINOTRANSFERASE 43 U/L (12-78); ALBUMIN 4.2 G/DL (3.4-5.0); ALKALINE PHOSPHATASE 89 U/L (46-116); ASPARTATE AMINO TRANSFERASE 28 U/L (15-37); BILIRUBIN,TOTAL 0.6 MG/DL (0.2-1.0)
[2018-07-01] MEDS ORDERED: NORCO 5-325 TA1 EACH ORAL (14:00)
[2018-07-01] MEDS ORDERED: HYDROmorphone 1mg/ml Carpuject IVP ONE (14:00)
[2018-07-01] MEDS ORDERED: PEPCID AC20 M2 PO (14:00)
[2018-07-01 14:20] LABS: APPEARANCE,URINE CLEAR; BILIRUBIN, URINE NEGATIVE (NEGATIVE); COLOR,URINE PALE YELLOW; GLUCOSE, URINE (UA) NEGATIVE (NEGATIVE); KETONES,URINE 3+ (NEGATIVE); LEUKOCYTE ESTERASE ,URINE NEGATIVE (NEGATIVE); NITRITE,URINE NEGATIVE (NEGATIVE); PH,URINE 9 (4.5-8.0); PROTEIN,URINE 1+ (NEGATIVE); UROBILINOGEN,URINE NORMAL MG/DL (0.0-1.0)
[2018-07-01 14:26] VITALS: BP 164/86
== END 2018-07-01 14:25 | disposition home or self-care (01) ==
LOC: EDBD 12:12 → EMR 12:42
DX: R10.9 Unspecified abdominal pain (principal); F14.10 Cocaine abuse, uncomplicated; I10 Essential (primary) hypertension; J45.909 Unspecified asthma, uncomplicated
CPT/HCPCS: 36415; 80053; 80307; 80329; 81003; 83690; 85025; 96361; 96374; 96375; 96376; 99284; J1170; J2270; J2405

== ENCOUNTER 2018-09-23 12:19 | Emergency (ER) | payer OTHER ==
[~2018-09-23] VITALS: Ht 198.1 cm; Wt 131.5 kg
[~2018-09-23 12:19] MED LIST changes: +PEPCID AC20 M2 PO
[2018-09-23] MEDS ORDERED: NORVASC2.5 MG ORAL (12:27)
[2018-09-23 12:30] VITALS: BP 173/114
[2018-09-23] MEDS ORDERED: Acetaminophen 500mg (ES) tab ORAL ONE (12:45)
--- NOTE | 2018-09-23 13:09 | Emergency Room Report ---
History of Present Illness General Chief Complaint: Abdominal Pain Source: Patient Present Illness HPI 38-year-old male with significant past medical history of gastritis here complaining of new onset of epigastric pain with multiple bouts of emesis since Monday night. He mentions this started after eating chicken from an unknown restaurant. He also complains of difficulty making bowel movement since the onset of his dyspnea symptoms. Denies blood in his stool or in his emesis. Denies fever and chills, SOB, chest pain, palpitation, sick contacts, recent travel. He denies drinking alcohol prior sounds of his abdominal pain and further denies smoking or use of any illicit drugs. He has come to the ED multiple times for the same complaint and has been told to follow-up with gastroenterology for endoscopy. Patient has not seen a semiautomatic taper operator yet. He is also hypertensive and has not taken his blood pressure medication today. He has been taking his Zantac for acid reflux and nausea with minimal relief. Has been able to drink liquids however has not eating and any solid food since Monday.abdominal CT has previously been done with no acute finding. . His reports that they just discharged from [place] ED for the same issue [address] was done and unremarkable patient was discharged with ranitidine 75mg. he has extensive history of cocaine abuse Allergies: Coded Allergies: No Known Allergies (Unverified , 04/04/18) Patient History Past Medical History: see triage record Past Surgical History: unable to obtain Pertinent Family History: none Reviewed Nursing Documentation: PMH: Agreed; PSxH: Agreed Nursing Documentation-PMH Hx Cardiac Problems: No - bilateral hip fracture Hx Hypertension: Yes Hx Pacemaker: No Hx Asthma: Yes Hx COPD: No Hx Diabetes: No Hx Cancer: No Hx Gastrointestinal Problems: Yes - Pancreatitis Hx Dialysis: No Hx Neurological Problems: No Hx Cerebrovascular Accident: No Hx Seizures: No Review of Systems All Other Systems: negative except mentioned in HPI Physical Exam Vital Signs Date Time Temp Pulse Resp B/P (MAP) Pulse Ox O2 Delivery O2 Flow Rate FiO2 09/23/18 12:24 98.2 94 18 160/111 97 Room Air Sp02 EP Interpretation: reviewed, normal General Appearance: normal inspection, well appearing, no apparent distress, alert, GCS 15 Head: normocephalic, atraumatic Eyes: bilateral eye normal inspection, bilateral eye PERRL ENT: normal ENT inspection, normal pharynx, normal voice Neck: normal inspection, full range of motion, supple Respiratory: normal inspection, chest non-tender, lungs clear, no rhonchi Cardiovascular #1: normal inspection, regular rate, rhythm, no edema, no murmur Gastrointestinal: no mass, no organomegaly, no peritonitis, no bruit, non- distended, no guarding, no hernia, no pulsatile mass, no rebound, tenderness - epigastric Rectal: deferred Genitourinary: no CVA tenderness, deferred Musculoskeletal: normal inspection, back normal Neurologic: normal inspection, alert, oriented x3 Psychiatric: normal inspection, judgement/insight normal, memory normal Skin: normal inspection, normal color, no rash, warm/dry, palpation normal Lymphatic: normal inspection, no adenopathy, axilla node tender (R) Medical Decision Making PA Attestation all diagnosis and treatment plans were reviewed and discussed with my supervising physician Diagnostic Impression: Primary Impression: Gastritis Additional Impression: Emesis, persistent ER Course 38-year-old male with significant past medical history of gastritis here complaining of new onset of epigastric pain with multiple bouts of emesis since Monday night. He mentions this started after eating chicken from an unknown restaurant. He also complains of difficulty making bowel movement since the onset of his dyspnea symptoms. Denies blood in his stool or in his emesis. Denies fever and chills, SOB, chest pain, palpitation, sick contacts, recent travel. He denies drinking alcohol prior sounds of his abdominal pain and further denies smoking or use of any illicit drugs. He has come to the ED multiple times for the same complaint and has been told to follow-up with gastroenterology for endoscopy. Patient has not seen a semiautomatic taper operator yet. He is also hypertensive and has not taken his blood pressure medication today. He has been taking his Zantac for acid reflux and nausea with minimal relief. Has been able to drink liquids however has not eating and any solid food since Monday.abdominal CT has previously been done with no acute finding His reports that they just discharged from [place] ED for the same issue [address] was done and unremarkable patient was discharged with ranitidine 75mg. he has extensive history of cocaine abuse Ddx considered but are not limited to gastritis, gastroenthritis, appendicitis , cholycistitis, HTN emergency Vital signs: are WNL, pt. is afebrile H&PE are most consistent with gastritis, emesis persistent ORDERS: CBC, CMP, lipase, UA, IV NS, zofran, tylenol, EKG, ranitidine 150mg zofran 4mg, toradol 30mg IM, potassium 20 mg was ordered however patient refused to take it as he claims he has potassium pills at home and his potassium is always ED INTERVENTIONS: None required at this time. DISCHARGE: At this time pt. is stable for d/c to home. Will provide printed patient care instructions, and any necessary prescriptions. Care plan and follow up instructions have been discussed with the patient prior to discharge. . He agrees with the course of treatment and agrees to see a semiautomatic taper operator for endoscopy as this is a chronic issue and needs further attention potassium 2.8, BUN/creatinine 27, creatinine 1.8 EKG Diagnostic Results Rate: normal Rhythm: NSR ST Segments: no acute changes ASA given to the pt in ED: No Last Vital Signs Date Time Temp Pulse Resp B/P (MAP) Pulse Ox O2 Delivery O2 Flow Rate FiO2 09/23/18 12:24 98.2 94 18 160/111 97 Room Air Disposition: HOME, SELF-CARE Condition: Stable Scripts Ranitidine Hcl (RANITIDINE HCL) 150 Mg Capsule 150 MG ORAL DAILY, #20 CAP Prov: Lauren Mcclure 09/23/18 Ondansetron* (ZOFRAN*) 4 Mg Tablet 4 MG ORAL Q6H PRN for Nausea & Vomiting, #14 TAB Prov: Lauren Mcclure 09/23/18 Referrals: [facility] (PCP) Patient Instructions: Gastritis, Adult, [id number], Nausea and Vomiting, Adult, [id number] Additional Instructions: follow with the primary care provider for referral to semiautomatic taper operator for endoscopy and colonoscopy as this is a chronic issue and needs to be further worked up by a specialist. Zofran and ranitidine as directed avoid eating spicy acidic fluid avoid smoking and avoid drinking alcohol Lauren Mcculre Sep 23, 2018 13:09
[2018-09-23 13:43] LABS: BASOPHILS % (AUTO) 1.1 % (0.0-2.0); EOSINOPHILS % (AUTO) 0.1 % (0.0-3.0); HEMATOCRIT 48.9 % (42.0-52.0); LYMPHOCYTES % (AUTO) 21.9 % (20.0-45.0); MEAN CORPUSCULAR VOLUME 91 FL (80-99); MONOCYTES % (AUTO) 14.3 % (1.0-10.0); NEUTROPHILS % (AUTO) 62.6 % (45.0-75.0); PLATELET COUNT 253 K/UL (150-450); RED BLOOD COUNT 5.39 M/UL (4.70-6.10); RED CELL DISTRIBUTION WIDTH 11.3 % (11.6-14.8); WHITE BLOOD COUNT 8.1 K/UL (4.8-10.8)
[2018-09-23 13:59] LABS: ALANINE AMINOTRANSFERASE 75 U/L (12-78); ALBUMIN 4.7 G/DL (3.4-5.0); ALBUMIN/GLOBULIN RATIO 0.9 (1.0-2.7); ALKALINE PHOSPHATASE 81 U/L (46-116); ANION GAP 14 mmol/L (5-15); ASPARTATE AMINO TRANSFERASE 56 U/L (15-37); BILIRUBIN,TOTAL 1.6 MG/DL (0.2-1.0); BLOOD UREA NITROGEN 27 mg/dL (7-18); CALCIUM 10.3 MG/DL (8.5-10.1); CARBON DIOXIDE 29 MMOL/L (21-32); CHLORIDE 93 MMOL/L (98-107); CREATININE 1.6 MG/DL (0.55-1.30); POTASSIUM 2.8 MMOL/L (3.5-5.1); SODIUM 136 MMOL/L (136-145)
[2018-09-23 14:03] LABS: BILIRUBIN,DIRECT 0.3 MG/DL (0.0-0.3)
[2018-09-23] MEDS ORDERED: Ketorolac 30mg Inj IV ONE (14:30)
[2018-09-23] MEDS ORDERED: ZOFRAN4 M3 ORAL (14:32)
[2018-09-23] MEDS ORDERED: RANITIDINE HCL150 M1 ORAL (14:32)
[2018-09-23 15:37] VITALS: BP 121/91
== END 2018-09-23 15:36 | disposition home or self-care (01) ==
LOC: EMR 12:40
DX: K29.70 Gastritis, unspecified, without bleeding (principal); J45.909 Unspecified asthma, uncomplicated; I10 Essential (primary) hypertension
CPT/HCPCS: 36415; 80053; 82248; 83690; 85025; 93005; 96361; 96374; 96375; 99285; J1885; J2405

== ENCOUNTER 2018-09-23 17:55 | Emergency (ER) | payer OTHER ==
[~2018-09-23] VITALS: Ht 198.1 cm; Wt 131.5 kg
[~2018-09-23 17:55] MED LIST changes: +NORVASC2.5 MG ORAL; +RANITIDINE HCL150 M1 ORAL; +ZOFRAN4 M3 ORAL
[2018-09-23 18:08] VITALS: BP 161/93
[2018-09-23] MEDS ORDERED: Morphine Sulfate 4mg/ml Inj (IV/IM USE ONLY) IVP ONE ×2 (19:00→23:30)
--- NOTE | 2018-09-23 19:21 | Emergency Room Report ---
History of Present Illness General Chief Complaint: Vomiting Source: Patient (Lauren Mcclure) Present Illness HPI 38-year-old male with past medical history of chronic gastritis was here earlier today came in 30 minutes ago complaining of hematoemesis patient was earlier today and was put in IV fluids, Toradol IM injection, CBC CMP and UA lipase were ordered with readings of 2.8 potassium. Patient refused to be given potassium oral. He mentioned that he will go home and he has always had low potassium and he has prescribed potassium medication. He was discharged with Zofran ODT and ranitidine however he reports he never picked him up from the pharmacy. Tablet oral hydration at home and reports vomiting blood immediately after. The fluid was taken. He reports being lethargic with epigastric pain no hemoptysis since the episode he had at home. Denies of constipation and passing minimal gas or 3 days. Denies fever or chills, chest pain, palpitation, SOB. He was also last [facility] 2 days ago reports were collected and this chest x-ray was unremarkable as well as abdominal ultrasound patient reporting fatigue, lightheadedness, and nausea at this moment. (Lauren Mcclure) Allergies: Coded Allergies: No Known Allergies (Unverified , 04/04/18) Patient History Past Medical History: see triage record Past Surgical History: unable to obtain Pertinent Family History: none Social History: Reports: drug use - history of cocaine use Immunizations: UTD Reviewed Nursing Documentation: PMH: Agreed; PSxH: Agreed (Lauren Mcclure) Nursing Documentation-PMH Hx Cardiac Problems: No - bilateral hip fracture Hx Hypertension: Yes Hx Pacemaker: No Hx Asthma: Yes Hx COPD: No Hx Diabetes: No Hx Cancer: No Hx Gastrointestinal Problems: Yes - Pancreatitis Hx Dialysis: No Hx Neurological Problems: No Hx Cerebrovascular Accident: No Hx Seizures: No (Lauren Mcclure) Review of Systems All Other Systems: negative except mentioned in HPI (Lauren Mcclure) Physical Exam Vital Signs Date Time Temp Pulse Resp B/P (MAP) Pulse Ox O2 Delivery O2 Flow Rate FiO2 09/23/18 18:00 98.2 84 18 162/95 95 Room Air Sp02 EP Interpretation: reviewed, normal General Appearance: normal inspection, well appearing, no apparent distress, alert Head: normocephalic, atraumatic Eyes: bilateral eye normal inspection, bilateral eye PERRL ENT: normal ENT inspection, normal pharynx, other - Mucous membrane moist Neck: normal inspection, full range of motion, supple Respiratory: normal inspection, chest non-tender, lungs clear, normal breath sounds, no wheezing Cardiovascular #1: normal inspection, no edema, no murmur, normal capillary refill Gastrointestinal: normal bowel sounds, no mass, no organomegaly, no bruit, non- distended, no guarding, no hernia, tenderness - Epigastric Rectal: deferred Genitourinary: no CVA tenderness Musculoskeletal: normal inspection, back normal, digits/nails normal, gait/ station normal Neurologic: normal inspection, alert, oriented x3, responsive Psychiatric: normal inspection, judgement/insight normal, memory normal Skin: normal inspection, normal color, no rash, warm/dry, palpation normal, well hydrated, normal turgor Lymphatic: normal inspection, no adenopathy (Lauren Mcclure) Medical Decision Making PA Attestation All diagnoses and treatment plans were reviewed and discussed with my supervising physician Dr. Padron (Lauren Mcclure) Diagnostic Impression: Primary Impression: Hematemesis Qualified Codes: K92.0 - Hematemesis Additional Impressions: Gastritis Qualified Codes: K29.01 - Acute gastritis with bleeding UTI (urinary tract infection) Qualified Codes: N39.0 - Urinary tract infection, site not specified Renal insufficiency ER Course 38-year-old male with past medical history of chronic gastritis was here earlier today came in 30 minutes ago complaining of hematoemesis patient was earlier today and was put in IV fluids, Toradol IM injection, CBC CMP and UA lipase were ordered with readings of 2.8 potassium. Patient refused to be given potassium oral. He mentioned that he will go home and he has always had low potassium and he has prescribed potassium medication. He was discharged with Zofran ODT and ranitidine however he reports he never picked him up from the pharmacy. Tablet oral hydration at home and reports vomiting blood immediately after. The fluid was taken. He reports being lethargic with epigastric pain no hemoptysis since the episode he had at home. Denies of constipation and passing minimal gas or 3 days. Denies fever or chills, chest pain, palpitation, SOB. He was also last [facility] 2 days ago reports were collected and this chest x-ray was unremarkable as well as abdominal ultrasound patient reporting fatigue, lightheadedness, and nausea at this moment. Ddx considered but are not limited to Allergy Melendez tear, esophagitis, upper GI bleed Vital signs: are WNL, pt. is afebrile H&PE are most consistent with ORDERS: any fluid, Zofran 4 mg IM, morphine 4 mg IM, CBC, CMP, lipase, UA, abdominal CT noncontrast ED INTERVENTIONS: IV fluid, Zofran, morphine patient to be admitted after consultation with Dr. Padron UA: 3+ blood, WBC positive , leuk positive (Lauren Mcclure) ER Course Please see above note. Patient seen and examined by me. Agree with evaluation and treatment plan. Due to GI bleed, needs hospitalization for further evaluation. Improved with treatment. Needs observation and treatment of GI bleed, renal insufficiency, UTI and abdominal pain. Consider endoscopy. Stable for transfer. Laboratory Tests Test 09/23/18 19:15 09/23/18 19:35 White Blood Count 7.1 K/UL (4.8-10.8) Red Blood Count 5.42 M/UL (4.70-6.10) Hemoglobin 16.7 G/DL (14.2-18.0) Hematocrit 48.5 % (42.0-52.0) Mean Corpuscular Volume 90 FL (80-99) Mean Corpuscular Hemoglobin 30.8 PG (27.0-31.0) Mean Corpuscular Hemoglobin Concent 34.4 G/DL (32.0-36.0) Red Cell Distribution Width 11.1 % (11.6-14.8) L Platelet Count 268 K/UL (150-450) Mean Platelet Volume 7.6 FL (6.5-10.1) Neutrophils (%) (Auto) 64.5 % (45.0-75.0) Lymphocytes (%) (Auto) 24.0 % (20.0-45.0) Monocytes (%) (Auto) 10.3 % (1.0-10.0) H Eosinophils (%) (Auto) 0.3 % (0.0-3.0) Basophils (%) (Auto) 1.0 % (0.0-2.0) Sodium Level 135 MMOL/L (136-145) L Potassium Level 4.8 MMOL/L (3.5-5.1) # Chloride Level 94 MMOL/L (98-107) L Carbon Dioxide Level 31 MMOL/L (21-32) Anion Gap 10 mmol/L (5-15) Blood Urea Nitrogen 29 mg/dL (7-18) H Creatinine 1.5 MG/DL (0.55-1.30) H Estimate Glomerular Filtration Rate > 60 mL/min (>60) Glucose Level 98 MG/DL (74-106) Calcium Level 9.9 MG/DL (8.5-10.1) Total Bilirubin 1.9 MG/DL (0.2-1.0) H Direct Bilirubin 0.1 MG/DL (0.0-0.3) Aspartate Amino Transferase (AST) 81 U/L (15-37) H Alanine Aminotransferase (ALT) 73 U/L (12-78) Alkaline Phosphatase 77 U/L (46-116) Total Protein 10.0 G/DL (6.4-8.2) H Albumin 4.4 G/DL (3.4-5.0) Globulin 5.6 g/dL Albumin/Globulin Ratio 0.8 (1.0-2.7) L Lipase 140 U/L (73-393) Urine Color Talia Urine Appearance Slightly cloudy Urine pH 5 (4.5-8.0) Urine Specific Kimberly 1.030 (1.005-1.035) Urine Protein 2+ (NEGATIVE) H Urine Glucose (UA) Negative (NEGATIVE) Urine Ketones 3+ (NEGATIVE) H Urine Blood 3+ (NEGATIVE) H Urine Nitrite Negative (NEGATIVE) Urine Bilirubin Negative (NEGATIVE) Urine Ictotest Negative (NEGATIVE) Urine Urobilinogen Normal MG/DL (0.0-1.0) Urine Leukocyte Esterase 2+ (NEGATIVE) H Urine RBC 2-4 /HPF (0 - 0) H Urine WBC 5-10 /HPF (0 - 0) H Urine Squamous Epithelial Cells Occasional /LPF Urine Amorphous Sediment Many /LPF (NONE) H Urine Bacteria Moderate /HPF (NONE) H (Jensen Padron MD) EKG Diagnostic Results Rate: normal Rhythm: NSR ST Segments: no acute changes - nssttw changes (Jensen Padron MD) Rhythm Strip Diag. Results EP Interpretation: yes Rhythm: NSR, no PVC's, no ectopy (Jensen Padron MD) CT/MRI/US Diagnostic Results CT/MRI/US Diagnostic Results : Imaging Test Ordered: CT abdomen no contrast Impression CT ABDOMEN & PELVIS Without Contrast: Comparison is made to prior CT abdomen/pelvis on 06/16/2016. Thickening of the wall of the distal esophagus may represent esophagitis. Small hiatal hernia. Hepatic steatosis. Mild hyperdensity within the gallbladder may represent artifact versus stone/ sludge. No CT evidence of gallbladder inflammation. Small left renal cyst. No hydronephrosis or stone. Small fat-containing left inguinal hernia. Phleboliths in the pelvis. No bowel obstruction or inflammation. Normal appendix. Screws noted in bilateral femoral necks. (Lauren Mcclure) Last Vital Signs Date Time Temp Pulse Resp B/P (MAP) Pulse Ox O2 Delivery O2 Flow Rate FiO2 09/23/18 18:00 98.2 84 18 162/95 95 Room Air (Lauren Mcclure) Last Vital Signs Date Time Temp Pulse Resp B/P (MAP) Pulse Ox O2 Delivery O2 Flow Rate FiO2 09/23/18 23:37 97.8 09/23/18 23:37 84 18 156/89 95 Room Air Status: improved (Jensen Padron MD) Disposition: XFER SHT-TRM HOSP Condition: Serious Referrals: [facility] (PCP) Lauren Mcclure Sep 23, 2018 19:21 Jensen Padron MD Sep 23, 2018 19:24
[2018-09-23 19:32] VITALS: BP 155/92
[2018-09-23 19:34] LABS: EOSINOPHILS % (AUTO) 0.3 % (0.0-3.0); HEMATOCRIT 48.5 % (42.0-52.0); HEMOGLOBIN 16.7 G/DL (14.2-18.0); MEAN CORPUSCULAR VOLUME 90 FL (80-99); MONOCYTES % (AUTO) 10.3 % (1.0-10.0); NEUTROPHILS % (AUTO) 64.5 % (45.0-75.0); PLATELET COUNT 268 K/UL (150-450); RED BLOOD COUNT 5.42 M/UL (4.70-6.10); RED CELL DISTRIBUTION WIDTH 11.1 % (11.6-14.8); WHITE BLOOD COUNT 7.1 K/UL (4.8-10.8)
[2018-09-23 19:51] LABS: APPEARANCE,URINE SLIGHTLY CLOUDY; BILIRUBIN, URINE NEGATIVE (NEGATIVE); COLOR,URINE AMBER; GLUCOSE, URINE (UA) NEGATIVE (NEGATIVE); KETONES,URINE 3+ (NEGATIVE); LEUKOCYTE ESTERASE ,URINE 2+ (NEGATIVE); NITRITE,URINE NEGATIVE (NEGATIVE); PH,URINE 5 (4.5-8.0); PROTEIN,URINE 2+ (NEGATIVE); UROBILINOGEN,URINE NORMAL MG/DL (0.0-1.0)
[2018-09-23 19:57] LABS: ANION GAP 10 mmol/L (5-15); BLOOD UREA NITROGEN 29 mg/dL (7-18); CALCIUM 9.9 MG/DL (8.5-10.1); CARBON DIOXIDE 31 MMOL/L (21-32); CHLORIDE 94 MMOL/L (98-107); CREATININE 1.5 MG/DL (0.55-1.30); POTASSIUM 4.8 MMOL/L (3.5-5.1); SODIUM 135 MMOL/L (136-145)
[2018-09-23 20:09] LABS: ALANINE AMINOTRANSFERASE 73 U/L (12-78); ALBUMIN 4.4 G/DL (3.4-5.0); ALBUMIN/GLOBULIN RATIO 0.8 (1.0-2.7); ALKALINE PHOSPHATASE 77 U/L (46-116); ASPARTATE AMINO TRANSFERASE 81 U/L (15-37); BILIRUBIN,TOTAL 1.9 MG/DL (0.2-1.0)
[2018-09-23 20:24] LABS: BILIRUBIN,DIRECT 0.1 MG/DL (0.0-0.3)
[2018-09-23] MEDS ORDERED: Lidocaine 1% MPF 10mg/ml 5ml INJ ONE (20:30)
[2018-09-23] MEDS ORDERED: cefTRIAXone 1 GM in NS 55 ML IVPB ONE (20:45)
[2018-09-23 21:17] VITALS: BP 162/97
[2018-09-23 22:38] VITALS: BP 133/96
[2018-09-23 23:37] VITALS: BP 156/89
--- NOTE | 2018-09-24 09:35 | Diagnostic Imaging Report ---
Indication: Abdominal pain Technique: Continuous helical transaxial imaging of the abdomen and pelvis was obtained from the lung bases to the pubic symphysis. No intravenous contrast was administered. Coronal 2-D reformats were also obtained. Automatic Exposure Control was utilized. Total Dose length Product (DLP): 1512.[address] Dose Index Volume (CTDIvol): 17.05,19.21,19.07 mGy Comparison: none Findings: There is thickening of the wall of the distal esophagus. A small hiatal hernia is present. Lung bases appear clear. There is a hypodensity in the left kidney probably a cyst. Gallbladder is unremarkable. No free fluid or free air identified. The appendix is normal. There is likely an appendicolith but there is no inflammation. There is a small left inguinal hernia containing fat. Urinary bladder is unremarkable. No hydronephrosis or renal stones identified. Single, bilateral screws are noted traversing the epiphyses. IMPRESSION: Thickening of the wall the distal esophagus. Further evaluation with EGD is recommended. Normal appendix. Suspected left renal cyst. Suggest confirmation with ultrasound. Small left inguinal hernia containing Bilateral femoral epiphyseal screws. [facility] has communicated the preliminary results to the Emergency Department. Their findings are largely concordant with this report. The CT scanner at [facility] is accredited by the [employer] and the scans are performed using dose optimization techniques as appropriate to a performed exam including Automatic Exposure control.
== END 2018-09-23 23:30 | disposition short-term general hospital (02) ==
LOC: EMR 18:21
DX: K29.01 Acute gastritis with bleeding (principal); K92.0 Hematemesis; N39.0 Urinary tract infection, site not specified; N28.9 Disorder of kidney and ureter, unspecified; I10 Essential (primary) hypertension; J45.909 Unspecified asthma, uncomplicated
CPT/HCPCS: 36415; 74176; 80053; 81001; 82248; 83690; 85025; 87086; 96361; 96365; 96372; 96375; 96376; 99285; J0360; J0696; J2270; J2405; S0028